=== PATIENT | male | born 1975 | race Caucasian/White ===

== ENCOUNTER 2017-01-24 15:18 | Emergency (ER) | payer MEDICAID ==
[~2017-01-24] VITALS: Ht 180.3 cm; Wt 103.0 kg
[~2017-01-24 15:18] MED LIST: INDO25 PO; LISI-363 PO
[2017-01-24 15:39] VITALS: BP 133/84; PULSE 74; RESP 15; TEMP 98.7; O2SAT 98
[2017-01-24] MEDS ORDERED: PRED20 PO (15:50)
[2017-01-24] MEDS ORDERED: INDO50CA PO ×2 (15:50→15:53)
[2017-01-24] MEDS ORDERED: LISI-515 PO (15:53)
[2017-01-24] MEDS ORDERED: METO25TA3 PO (15:53)
--- NOTE | 2017-01-24 15:53 | PD ---
HPI Chief Complaint: Pain: Acute or Chronic Time Seen by Provider: 15:45 Travel History International Travel<30 days: No Contact w/Intl Traveler<30days: No Traveled to known affect area: No History of Present Illness HPI 41-year-old male presents for evaluation of "a gout flareup" his left foot. Symptoms started this morning. He has a stabbing pain in the left foot second MTP joint. The pain is worse when walking. The pain is similar to previous gouty flareups. He reports that typically the combination of indomethacin and prednisone work well when he has these gouty arthritis flareups. He denies any trauma to the foot. He has no other complaints. PFSH Past Medical History Asthma: Yes (CHILDHOOD) Cancer: No Cardiovascular Problems: No High Cholesterol: Yes Diabetes: No Diminished Hearing: No Gout: Yes (RIGHT KNEE) Genitourinary: No Hepatitis: No Hiatal Hernia: No Immune Disorder: No Musculoskeletal: Yes (GOUT IN RIGHT KNEE) Neurologic: Yes (LEFT ULNA NERVE DAMAGE) Psychiatric: No Reproductive: No Respiratory: No Thyroid Disease: No ?: Not Past Surgical History Abdominal Surgery: No AICD: No Body Medical Devices: NONE Cardiac Surgery: No Ear Surgery: No Endocrine Surgery: No Eye Surgery: No Genitourinary Surgery: No Joint Replacement: No Oral Surgery: No Pacemaker: No Thoracic Surgery: No Social History Alcohol Use: Yes (RARELY) Tobacco Use: Yes (1/2ppd) Substance Use: No Allergies-Medications (Allergen,Severity, Reaction): Coded Allergies: Tramadol (Verified Allergy, Severe, HIVES AND VOMITING, 01/24/17) Reported Meds & Prescriptions Reported Meds & Active Scripts Active Indocin 25 Mg Cap (Indomethacin) 25 Mg Cap 50 Mg PO Q8H 30 Days Reported Lisinopril 20 mg (Lisinopril) 20 Mg Tab 1 Tab PO DAILY Review of Systems General / Constitutional: No: Fever, Chills Musculoskeletal: Positive: Pain, No: Edema Skin: Positive Other (no bruising or soft tissue swelling) Physical Exam Narrative GENERAL: Well-developed well-nourished male in no acute distress SKIN: Warm and dry. No Bruising or soft tissue swelling CARDIOVASCULAR: Regular rate and rhythm. No murmur appreciated. RESPIRATORY: No accessory muscle use. Clear to auscultation. Breath sounds equal bilaterally. MUSCULOSKELETAL: No obvious deformities. There is surrounding tenderness to palpation to left second MTP joint. There is some pain with range of motion of this joint. There is no soft tissue swelling or joint effusion at this time. Data Data Last Documented VS Vital Signs Date Time Temp Pulse Resp B/P Pulse Ox O2 Delivery O2 Flow Rate FiO2 01/24/17 15:39 98.7 74 15 133/84 98 Orders Ketorolac Inj (Toradol Inj) (01/24/17 16:00) [facility] Medical Decision Making Medical Screen Exam Complete: Yes Emergency Medical Condition: Yes Medical Record Reviewed: Yes Differential Diagnosis Gouty arthritis, spontaneous fracture, sprain Narrative Course We will treat for gouty arthritis flareup with a mixture of indomethacin and prednisone which is worked well in the past for this patient. Diagnosis Primary Impression: Gouty arthritis of toe of left foot Additional Instructions: Medication as prescribed. Take with meals. Follow-up with primary care physician. Return for any emergent medical conditions. Med/Other Pt SpecificInfo: Prescription(s) given Scripts Prednisone 20 Mg Tab20 Mg PO BID 5 Days Ref 0 Prov:Maria Antonia Quarles MD 01/24/17 Indomethacin 50 Mg Cap50 Mg PO TID 7 Days Ref 0 Take with food, milk, or antacids to decrease stomach adverse effects. Prov:Maria Antonia Quarles MD 01/24/17 Disposition: 01 DISCHARGE HOME Condition: Stable Don Barnard Jan 24, 2017 15:53
[2017-01-24] MEDS ORDERED: KETOROLAC TROMETHAMINE 60 MG/2 ML (IM) VIAL IM ONE (16:00)
== END 2017-01-24 16:18 | disposition home or self-care (01) ==
LOC: PHEFT 15:18
DX: M10.072 Idiopathic gout, left ankle and foot (principal); E78.00 Pure hypercholesterolemia, unspecified; J45.909 Unspecified asthma, uncomplicated; F17.210 Nicotine dependence, cigarettes, uncomplicated
CPT/HCPCS: 96372; 99283; J1885

== ENCOUNTER 2017-05-18 15:01 | Emergency (ER) | payer MEDICAID ==
[~2017-05-18] VITALS: Ht 180.3 cm; Wt 104.7 kg
[~2017-05-18 15:01] MED LIST changes: -INDO25 PO; +INDO50CA PO; -LISI-363 PO; +LISI-515 PO; +METO25TA3 PO; +PRED20 PO
[2017-05-18 15:12] VITALS: BP 167/82; PULSE 76; RESP 18; TEMP 98.8; O2SAT 98
[2017-05-18] MEDS ORDERED: KETOROLAC TROMETHAMINE 60 MG/2 ML (IM) VIAL IM ONE (15:45)
[2017-05-18] MEDS ORDERED: INDO50CA PO (15:46)
--- NOTE | 2017-05-18 15:51 | PD ---
HPI Chief Complaint: Pain: Acute or Chronic Time Seen by Provider: 15:35 Travel History International Travel<30 days: No Contact w/Intl Traveler<30days: No Traveled to known affect area: No History of Present Illness HPI 42-year-old male with history of gout presents to the emergency room for evaluation of gout flareup to the left foot. Patient states he woke up with the pain, redness, and swelling this morning. It is localized to the left first , second, and third MTP joints. States he has had it in his right foot and knee but never in the left foot. Pain is severe and worse with range of motion and ambulation. He has not taken anything for pain. Denies trauma or injury to the area. No fever, chills, nausea, or vomiting. PFSH Past Medical History Asthma: Yes (CHILDHOOD) Cancer: No Cardiovascular Problems: No High Cholesterol: Yes Diabetes: No Diminished Hearing: No Endocrine: Yes (GOUT R KNEE lt foot) Gastrointestinal Disorders: Yes (BLOOD IN STOOL 6-8MTHS AGAO COLONOSCOPY - POLYP) Gout: Yes (lt foot) Genitourinary: No Hepatitis: No Hiatal Hernia: No Hypertension: Yes Immune Disorder: No Musculoskeletal: Yes Neurologic: Yes (LEFT ULNA NERVE DAMAGE) Psychiatric: No Reproductive: No Respiratory: No Immunizations Current: Yes Thyroid Disease: No Tetanus Vaccination: < 5 Years Influenza Vaccination: No Past Surgical History Abdominal Surgery: No AICD: No Body Medical Devices: NONE Cardiac Surgery: No Ear Surgery: No Endocrine Surgery: No Eye Surgery: No Genitourinary Surgery: No Joint Replacement: No Oral Surgery: No Pacemaker: No Thoracic Surgery: No Other Surgery: Yes (lt arm tendon repair) Social History Alcohol Use: Yes (RARELY) Tobacco Use: No Substance Use: No Allergies-Medications (Allergen,Severity, Reaction): Coded Allergies: Tramadol (Verified Allergy, Severe, HIVES AND VOMITING, 05/18/17) Reported Meds & Prescriptions Reported Meds & Active Scripts Active Indomethacin 50 Mg Cap 50 Mg PO Q8HR 7 Days Take with food, milk, or antacids to decrease stomach adverse effects. Review of Systems Except as stated in HPI: all other systems reviewed are Neg Physical Exam Narrative GENERAL: Well-nourished, well-developed male in no acute distress. Afebrile. Ambulatory. SKIN: Focused skin assessment warm/dry. Moderate erythema from the left second and third MTP rinse. HEAD: Normocephalic. EYES: No scleral icterus. No injection or drainage. NECK: Supple, trachea midline. No JVD or lymphadenopathy. CARDIOVASCULAR: Regular rate and rhythm without murmurs, gallops, or rubs. RESPIRATORY: Breath sounds equal bilaterally. No accessory muscle use. MUSCULOSKELETAL: No cyanosis. Mild to moderate edema of the left dorsal foot. Extreme tenderness to palpation of the first second and third MTP joints. 2+ dorsalis pedis pulse and less than 2 second capillary refill distally. Pain with active and passive range of motion of the first second and third toes. Data Data Last Documented VS Vital Signs Date Time Temp Pulse Resp B/P Pulse Ox O2 Delivery O2 Flow Rate FiO2 05/18/17 15:12 98.8 76 18 167/82 98 Orders Ketorolac Inj (Toradol Inj) (05/18/17 15:45) [facility] Medical Decision Making Medical Screen Exam Complete: Yes Emergency Medical Condition: Yes Medical Record Reviewed: Yes Differential Diagnosis Gouty arthritis, contusion, septic arthritis unlikely Narrative Course 42-year-old male with history of gout presents to the emergency room for evaluation of gout flareup of the left dorsal foot that started this morning. Patient is afebrile and well-appearing in the emergency room. Vital signs stable. Physical exam reveals mild to moderate edema, erythema, and extreme tenderness to palpation of the left first second and third MTP joints. Left lower extremity is neurovascularly intact with 2+ dorsalis pedis pulse and less than 2 second capillary refill distally. Patient is ambulatory. This is gout flare. Patient was given Toradol in the emergency room and discharged with prescription for indomethacin. Told to follow up with a primary care physician or return for worsening symptoms. He understands and agrees to plan. Diagnosis Primary Impression: Gouty arthritis of toe of left foot Referrals: Primary Care Physician Patient Instructions: General Instructions, Gout (ED) Additional Instructions: Rest and drink plenty of fluids. Take indomethacin with food as directed, as needed for pain. Elevate and apply ice to the affected area for 20 minutes at a time, as needed for pain and swelling. Follow-up with a primary care physician. Return to the emergency room for worsening symptoms. Scripts Indomethacin 50 Mg Cap50 Mg PO Q8HR 7 Days Ref 0 Take with food, milk, or antacids to decrease stomach adverse effects. Prov:Kocisko,Abisai J. MD 05/18/17 Disposition: 01 DISCHARGE HOME Condition: Stable Sydni Vasquez May 18, 2017 15:51
== END 2017-05-18 16:06 | disposition home or self-care (01) ==
LOC: PHEFT 15:01
DX: M10.9 Gout, unspecified (principal); I10 Essential (primary) hypertension; E78.00 Pure hypercholesterolemia, unspecified; Z87.39 Personal history of other diseases of the musculoskeletal system and connective tissue; Z87.19 Personal history of other diseases of the digestive system; Z87.09 Personal history of other diseases of the respiratory system; Z86.69 Personal history of other diseases of the nervous system and sense organs
CPT/HCPCS: 96372; 99284; J1885

== ENCOUNTER 2017-07-29 13:24 | Emergency (ER) | payer MEDICAID ==
[~2017-07-29] VITALS: Ht 180.3 cm; Wt 104.9 kg
[~2017-07-29 13:24] MED LIST changes: -LISI-515 PO; -METO25TA3 PO; -PRED20 PO
[2017-07-29 13:35] VITALS: BP 168/81; PULSE 82; RESP 18; TEMP 98.5; O2SAT 98
[2017-07-29 13:55] VITALS: RESP 16; O2SAT 98
[2017-07-29] MEDS ORDERED: SODIUM CHLOR 0.9% 1000 ML INJ 1,000 ML IV SCH (13:58)
[2017-07-29] MEDS ORDERED: SODIUM CHLORIDE 0.9% FLUSH 10 ML FLUSH IV FLUSH PRN (14:00)
--- NOTE | 2017-07-29 14:04 | PD ---
HPI Chief Complaint: Complaint Time Seen by Provider: 13:53 Travel History International Travel<30 days: No Contact w/Intl Traveler<30days: No Traveled to known affect area: No History of Present Illness HPI This is a 42-year-old male with a history of gout, who presents today with complaints of intermittent pain that radiates from his right lower abdomen down to his right lower testicle. Patient states it started yesterday. He states it 's a sudden onset of sharp shooting pain. He reports being doubled over when he has pain. He states intermittently he has some mild discomfort in his right lower quadrant. He denies vomiting or nausea. Denies a fevers chills. There is no reported diarrhea. He does state that at times sometimes he has difficulty starting his urine stream. There is no penile discharge. Patient has no previous history of kidney stones. He is a previous abdominal surgery. PFSH Past Medical History Asthma: Yes (CHILDHOOD) Cancer: No Cardiovascular Problems: No High Cholesterol: Yes Diabetes: No Diminished Hearing: No Endocrine: Yes (GOUT R KNEE lt foot) Gastrointestinal Disorders: Yes (BLOOD IN STOOL 6-8MTHS AGAO COLONOSCOPY - POLYP) Gout: Yes (lt foot) Genitourinary: No Hepatitis: No Hiatal Hernia: No Hypertension: Yes Immune Disorder: No Musculoskeletal: Yes Neurologic: Yes (LEFT ULNA NERVE DAMAGE) Psychiatric: No Reproductive: No Respiratory: No Immunizations Current: Yes Thyroid Disease: No ?: Not Past Surgical History Abdominal Surgery: No AICD: No Body Medical Devices: NONE Cardiac Surgery: No Ear Surgery: No Endocrine Surgery: No Eye Surgery: No Genitourinary Surgery: No Joint Replacement: No Oral Surgery: No Pacemaker: No Thoracic Surgery: No Other Surgery: Yes (lt arm tendon repair) Social History Alcohol Use: Yes (RARELY) Tobacco Use: No Substance Use: No Allergies-Medications (Allergen,Severity, Reaction): Coded Allergies: tramadol (Unverified Allergy, Severe, HIVES AND VOMITING, 07/29/17) Reported Meds & Prescriptions Reported Meds & Active Scripts Active Ketorolac (Ketorolac Tromethamine) 10 Mg Tab 10 Mg PO TID Allopurinol 300 Mg Tab 300 Mg PO DAILY Review of Systems Except as stated in HPI: all other systems reviewed are Neg General / Constitutional: No: Fever HENT: No: Headaches, Neck Pain Cardiovascular: No: Chest Pain or Discomfort Respiratory: No: Cough, Shortness of Breath Gastrointestinal: Positive: Abdominal Pain (right lower quadrant), No: Nausea, Vomiting Genitourinary: Positive: Other (intermittent right testicular pain), No: Dysuria, Flank Pain, Discharge Musculoskeletal: No: Weakness, Pain (no flank pain) Neurologic: No: Weakness, Dizziness, Headache Physical Exam Narrative GENERAL: Well-nourished, well-developed patient, in no acute respiratory distress. SKIN: Focused skin assessment warm/dry. HEAD: Normocephalic/atraumatic. EYES: No scleral icterus. No injection or drainage. NECK: Supple, trachea midline. No JVD or lymphadenopathy. GASTROINTESTINAL: Abdomen soft, nondistended. There is subjective tenderness to deep palpation in his right lower quadrant. No rebound or guarding. GENITOURINARY: Circumcised. Testes descended bilaterally without evidence of rotation. No lesions or erythema. No urethral discharge. No tenderness elicited during this exam. MUSCULOSKELETAL: No cyanosis, or edema. BACK: Nontender without obvious deformity. No CVA tenderness. NEUROLOGICAL: Awake and alert. Cranial nerves II through XII intact. Motor grossly within normal limits. Five out of 5 muscle strength in all muscle groups. Normal speech. PSYCHIATRIC: No delusional thought processes. No hallucinations. Data Data Last Documented VS Vital Signs Date Time Temp Pulse Resp B/P (MAP) Pulse Ox O2 Delivery O2 Flow Rate FiO2 07/29/17 13:55 16 98 Room Air 07/29/17 13:35 98.5 82 168/81 (110) Orders Orders Basic Metabolic Panel (Bmp) (07/29/17 13:58) Complete Blood Count With Diff (07/29/17 13:58) Urinalysis - C+S If Indicated (07/29/17 13:58) Iv Access Insert/Monitor (07/29/17 13:58) Ecg Monitoring (07/29/17 13:58) Oximetry (07/29/17 13:58) Sodium Chlor 0.9% 1000 Ml Inj (Ns 1000 M (07/29/17 13:58) Sodium Chloride 0.9% Flush (Ns Flush) (07/29/17 14:00) Ct Abd/Pel W/O Iv Contrast (07/29/17 14:49) Labs Laboratory Tests Test 07/29/17 14:00 07/29/17 14:08 Urine Collection Type CLEAN CATCH Urine Color YELLOW Urine Turbidity CLEAR Urine pH 5.5 Urine Specific [place] 1.024 Urine Protein 100 mg/dL Urine Glucose (UA) NEG mg/dL Urine Ketones NEG mg/dL Urine Occult Blood MOD Urine Nitrite NEG Urine Bilirubin NEG Urine Leukocyte Esterase NEG Urine RBC 20-24 /hpf Urine Squamous Epithelial Cells 0-5 /hpf Microscopic Urinalysis Comment CULT NOT INDICATED Urine Collection Time 1400 White Blood Count 9.1 TH/MM3 Red Blood Count 4.84 MIL/MM3 Hemoglobin 14.6 GM/DL Hematocrit 42.3 % Mean Corpuscular Volume 87.3 FL Mean Corpuscular Hemoglobin 30.1 PG Mean Corpuscular Hemoglobin Concent 34.5 % Red Cell Distribution Width 13.4 % Platelet Count 150 TH/MM3 Mean Platelet Volume 8.7 FL Neutrophils (%) (Auto) 62.2 % Lymphocytes (%) (Auto) 26.3 % Monocytes (%) (Auto) 6.3 % Eosinophils (%) (Auto) 3.6 % Basophils (%) (Auto) 1.6 % Neutrophils # (Auto) 5.7 TH/MM3 Lymphocytes # (Auto) 2.4 TH/MM3 Monocytes # (Auto) 0.6 TH/MM3 Eosinophils # (Auto) 0.3 TH/MM3 Basophils # (Auto) 0.1 TH/MM3 CBC Comment DIFF FINAL Differential Comment Blood Urea Nitrogen 10 MG/DL Creatinine 0.79 MG/DL Random Glucose 86 MG/DL Calcium Level 9.5 MG/DL Sodium Level 138 MEQ/L Potassium Level 3.6 MEQ/L Chloride Level 104 MEQ/L Carbon Dioxide Level 25.9 MEQ/L Anion Gap 8 MEQ/L Estimat Glomerular Filtration Rate 109 ML/MIN [facility] Medical Decision Making Medical Screen Exam Complete: Yes Emergency Medical Condition: Yes Differential Diagnosis Kidney stone versus appendicitis versus epididymitis versus testicular torsion Narrative Course 42-year-old male presents with intermittent right lower quadrant pain with radiation to his testicle. He reports it as sharp stabbing-like intermittent pain. As no reported fevers, chills. Rates the pain comes and goes. There is no rebound or guarding. Diagnosis Primary Impression: Ureteral colic Additional Impressions: Renal colic on right side History of gout Additional Instructions: Strain your urine. CBC anything that looks like a spec us and save and follow up with her primary doctor. Allopurinol daily to help prevent stones. Drink plenty of fluids including water. Ketorolac as needed for pain. Med/Other Pt SpecificInfo: Prescription(s) given Scripts Ketorolac (Ketorolac) 10 Mg Tab 10 MG PO TID for Pain Management, #15 TAB 0 Refills Prov: Francisco Sears MD 07/29/17 Allopurinol (Allopurinol) 300 Mg Tab 300 MG PO DAILY for Gout, #30 TAB 0 Refills Prov: Francisco Sears MD 07/29/17 Disposition: 01 DISCHARGE HOME Condition: Stable Francisco Sears MD Jul 29, 2017 14:04
[2017-07-29 14:15] LABS: AUTOMATED NEUTROPHIL # 5.7 TH/MM3 (1.8-7.7); BASOPHIL # 0.1 TH/MM3 (0-0.2); BASOPHIL % 1.6 % (0.0-2.0); EOSINOPHIL # 0.3 TH/MM3 (0-0.4); EOSINOPHIL % 3.6 % (0.0-4.0); HEMATOCRIT 42.3 % (39.0-51.0); HEMO FLAGS DIFF FINAL; LYMPH % 26.3 % (9.0-44.0); LYMPHOCYTE # 2.4 TH/MM3 (1.0-4.8); MEAN CELL VOLUME 87.3 FL (80.0-100.0); MEAN CORPUSCULAR HEMOGLOBIN 30.1 PG (27.0-34.0); MEAN CORPUSCULAR HGB CONC 34.5 % (32.0-36.0); MONO % 6.3 % (0.0-8.0); NEUT % 62.2 % (16.0-70.0); PLATELET COUNT 150 TH/MM3 (150-450); RED BLOOD COUNT 4.84 MIL/MM3 (4.50-5.90); RED CELL DISTRIBUTION WIDTH 13.4 % (11.6-17.2); WHITE BLOOD COUNT 9.1 TH/MM3 (4.0-11.0)
[2017-07-29 14:22] LABS: BLOOD, URINE MOD (NEG); GLUCOSE,URINE NEG (NEG); KETONE, URINE NEG (NEG); NITRITE,URINE NEG (NEG); PH, URINE 5.5 (5.0-8.5)
[2017-07-29 14:23] LABS: POTASSIUM 3.6 MEQ/L (3.5-5.1)
[2017-07-29 14:24] LABS: COMMENT (UR) CULT NOT INDICATED; CULTURE IF INDICATED CULT NOT INDICATED; METHOD OF COLLECTION CLEAN CATCH; SQUAMOUS EPITHELIAL CELL URINE 0-5 /hpf (0-5); URINE COLOR YELLOW (YELLW/STRAW)
[2017-07-29 14:26] LABS: BICARBONATE 25.9 MEQ/L (21.0-32.0)
[2017-07-29] MEDS ORDERED: ALLO300T2 PO (15:36)
[2017-07-29] MEDS ORDERED: KETO10 PO (15:37)
--- NOTE | 2017-07-29 16:06 | RADRPT ---
EXAM DATE/TIME: 07/29/2017 15:04 [facility] COMPARISON: No previous studies available for comparison. INDICATIONS : Right lower abdomen pain that radiates to groin. ORAL CONTRAST: No oral contrast ingested. RADIATION DOSE: 27.19 CTDIvol (mGy) ; High dose protocol MEDICAL HISTORY : Hypertension. SURGICAL HISTORY : None. ENCOUNTER: Initial ACUITY: 1 day PAIN SCALE: 7/10 LOCATION: Right flank TECHNIQUE: Volumetric scanning of the abdomen and pelvis was performed. Using automated exposure control and ad justment of the mA and/or kV according to patient size, radiation dose was kept as low as reasonably achievable to obtain optimal diagnostic quality images. DICOM format image data is available electro nically for review and comparison. FINDINGS: LOWER LUNGS: Not visualized LIVER: Visualized portions are intact. There is no dilation of the biliary tree. Punctate calcified gallsto ne in the gallbladder dome. SPLEEN: Normal size without lesion. PANCREAS: Within normal limits. KIDNEYS: Normal in size and shape. There is no mass, stone, or hydronephrosis. ADRENAL GLANDS: Within normal limits. VASCULAR: There is no aortic aneurysm. BOWEL/MESENTERY: The stomach, small bowel, and colon demonstrate no acute abnormality. There is no free intraperitone al air or fluid. The appendix is identified and is radiographically normal. ABDOMINAL WALL: Within normal limits. RETROPERITONEUM: There is no lymphadenopathy. BLADDER: A small, 2 mm calculus is seen just beyond the right UVJ REPRODUCTIVE: Prostate is prominent at 5.3 cm. INGUINAL: There is no lymphadenopathy or hernia. MUSCULOSKELETAL: Within normal limits for patient age. CONCLUSION: 1. There is a 2 mm stone just beyond the UVJ. This may have recently passed from the right renal lainey ecting system. 2. Multiple punctate centimeters stones in the right renal collecting system or nonobstructing. No si gnificant stones on the left. 3. Appendix is normal. 4. Prominent prostate Cortez Calderón MD on July 29, 2017 at 16:00 Board Certified Radiologist. This report was verified electronically.
[2017-07-29 16:30] VITALS: BP 155/78
== END 2017-07-29 16:37 | disposition home or self-care (01) ==
LOC: PHED 13:24
DX: N23 Unspecified renal colic (principal); M10.9 Gout, unspecified
CPT/HCPCS: 74176; 80048; 81001; 85025; 96360; 96361; 99285; J7030

== ENCOUNTER 2017-12-04 07:31 | Emergency (ER) | payer MEDICAID ==
[~2017-12-04] VITALS: Ht 180.3 cm; Wt 98.0 kg
[~2017-12-04 07:31] MED LIST changes: +ALLO300T2 PO; -INDO50CA PO; +KETO10 PO
[2017-12-04 07:32] VITALS: BP 147/84; PULSE 79; RESP 16; TEMP 98.1; O2SAT 98
[2017-12-04] MEDS ORDERED: INDO50CA PO (08:14)
[2017-12-04] MEDS ORDERED: PRED20 PO (08:16)
--- NOTE | 2017-12-04 08:18 | PD ---
HPI Chief Complaint: Pain: Acute or Chronic Time Seen by Provider: 08:10 Travel History International Travel<30 days: No Contact w/Intl Traveler<30days: No Traveled to known affect area: No History of Present Illness HPI This patient complains of having a gout flare in his left foot. He says he gets it 2-3 times per year. Duration of this flare is 2 days. Location is distal left foot at the second and third MTP joint. PFSH Past Medical History Asthma: Yes (CHILDHOOD) Cancer: No Cardiovascular Problems: No High Cholesterol: Yes Diabetes: No Diminished Hearing: No Endocrine: Yes (GOUT R KNEE lt foot) Gastrointestinal Disorders: Yes ( COLONOSCOPY -POLYP) Gout: Yes Genitourinary: No Hepatitis: No Hiatal Hernia: No Hypertension: Yes (HX OF) Immune Disorder: No Musculoskeletal: Yes Neurologic: Yes (LEFT ULNA NERVE DAMAGE) Psychiatric: No Reproductive: No Respiratory: No Immunizations Current: Yes Thyroid Disease: No Tetanus Vaccination: < 5 Years Influenza Vaccination: No Past Surgical History Abdominal Surgery: No AICD: No Body Medical Devices: NONE Cardiac Surgery: No Ear Surgery: No Endocrine Surgery: No Eye Surgery: No Genitourinary Surgery: No Joint Replacement: No Oral Surgery: No Pacemaker: No Thoracic Surgery: No Other Surgery: Yes (lt arm tendon repair) Social History Alcohol Use: Yes (RARELY) Tobacco Use: No ( smoked 1/2 ppd) Substance Use: No Allergies-Medications (Allergen,Severity, Reaction): Coded Allergies: tramadol (Unverified Allergy, Severe, HIVES AND VOMITING, 12/04/17) Reported Meds & Prescriptions Reported Meds & Active Scripts Active No Active Prescriptions or Reported Medications Review of Systems General / Constitutional: No: Fever HENT: No: Headaches Cardiovascular: No: Chest Pain or Discomfort Respiratory: No: Cough Physical Exam Narrative SKIN: Focused skin assessment reveals no rash or ulcers. Skin is warm and dry. Palpation shows no induration or nodules. Psych: Normal mood and affect. Normal insight and judgment. Left foot: Has some tenderness and warmth at the second third MTP joint. No bruising or open wound. Sensation and capillary refill intact Data Data Last Documented VS Vital Signs Date Time Temp Pulse Resp B/P (MAP) Pulse Ox O2 Delivery O2 Flow Rate FiO2 12/04/17 07:32 98.1 79 16 147/84 (105) 98 MDM Medical Decision Making Medical Screen Exam Complete: Yes Emergency Medical Condition: Yes Medical Record Reviewed: Yes Differential Diagnosis Gout, rheumatoid, lupus Narrative Course I have reviewed the patient's electronic medical record. Patient's having a flare of his gout and he reports it feels exactly the same as the usual flare He does good with indomethacin and steroids and requests both I have requested he started taking Zantac while he takes these 2 medications as he is a smoker and at risk for peptic ulcer disease Prescriptions written for one week of indomethacin and 5 days of prednisone Recommend he ice and elevate Diagnosis Primary Impression: Gouty arthritis of toe of left foot Additional Instructions: The patient was advised to follow up with their physician and return if they worsen. Ice and elevate left foot Use Zantac while taking anti-inflammatories and prednisone Limit smoking Med/Other Pt SpecificInfo: Prescription(s) given Scripts No Active Prescriptions or Reported Meds Disposition: 01 DISCHARGE HOME Condition: Stable Abisai El MD Dec 04, 2017 08:18
== END 2017-12-04 08:29 | disposition home or self-care (01) ==
LOC: PHED 07:31
DX: M10.072 Idiopathic gout, left ankle and foot (principal); I10 Essential (primary) hypertension; E78.00 Pure hypercholesterolemia, unspecified; J45.909 Unspecified asthma, uncomplicated; F17.210 Nicotine dependence, cigarettes, uncomplicated; Z88.8 Allergy status to other drugs, medicaments and biological substances
CPT/HCPCS: 99283

== ENCOUNTER 2018-01-24 20:25 | Emergency (ER) | payer SELFPAY ==
[~2018-01-24] VITALS: Ht 180.3 cm; Wt 95.2 kg
[~2018-01-24 20:25] MED LIST changes: -ALLO300T2 PO; +INDO50CA PO; -KETO10 PO; +PRED20 PO
[2018-01-24 20:30] VITALS: BP 190/80; PULSE 83; RESP 18; TEMP 100.2; O2SAT 97
== END 2018-01-24 22:40 | disposition left against medical advice (07) ==
LOC: PHED 20:25
DX: Z53.21 Procedure and treatment not carried out due to patient leaving prior to being seen by health care provider (principal)
CPT/HCPCS: 99281